=== PATIENT | female | born 1940 | race Caucasian/White ===

== ENCOUNTER 2022-02-10 17:56 | Outpatient (CLI) | payer MEDICARE, BC, SELFPAY ==
[2022-02-10 12:00] LABS: Albumin* 3.9 g/dL (3.3-5.0)
[2022-02-10 12:01] LABS: Chloride* 105 mmol/L (96-114); Sodium* 139 mmol/L (135-149)
[2022-02-10 12:03] LABS: Cholesterol* 196 mg/dL (90-199); Creatinine* 1.2 mg/dL (0.5-1.5); Estimated Glomerular Filt Rate 45.19
[2022-02-10 12:04] LABS: Alanine Aminotransferase* 12 U/L (4-35); Alkaline Phosphatase* 107 U/L (40-150); Aspartate Amino Transferase* 23 U/L (12-35); Bilirubin Total* 0.5 mg/dL (0.1-1.5); Blood Urea Nitrogen* 27 mg/dL (7-30); Calcium* 9.2 mg/dL (8.4-10.6); Carbon Dioxide* 30 mmol/L (20-32); Glucose* 97 mg/dL (60-115); Triglycerides* 180 mg/dL (40-149)
[2022-02-10 12:05] LABS: HDL Cholesterol* 57 mg/dL (>=50); LDL Cholesterol Calculated 103 mg/dL (<100)
[2022-02-10 13:08] LABS: Vitamin D 25 Hydroxy* 59 ng/mL (30-80)
== END 2022-02-10 17:57 | disposition home or self-care (01) ==
PROVIDERS: PCP Family Medicine; Visit Provider Family Medicine
DX: E78.5 Hyperlipidemia, unspecified (principal); M85.80 Other specified disorders of bone density and structure, unspecified site
CPT/HCPCS: 80053; 80061; 82306

== ENCOUNTER 2022-03-02 07:55 | Outpatient (CLI) | payer MEDICARE, BC, SELFPAY ==
[2022-03-02 11:24] LABS: Ferritin* 43.4 ng/mL (11.1-264.0)
[2022-03-02 11:40] LABS: Vitamin B12* 556 pg/mL (243-894)
== END 2022-03-02 07:56 | disposition home or self-care (01) ==
PROVIDERS: PCP Family Medicine; Visit Provider Family Medicine
DX: Z00.00 Encounter for general adult medical examination without abnormal findings (principal); R53.83 Other fatigue; E55.9 Vitamin D deficiency, unspecified; E78.5 Hyperlipidemia, unspecified; F41.9 Anxiety disorder, unspecified; M85.80 Other specified disorders of bone density and structure, unspecified site; F32.A Depression, unspecified; K21.9 Gastro-esophageal reflux disease without esophagitis; N18.30 Chronic kidney disease, stage 3 unspecified; Z13.0 Encounter for screening for diseases of the blood and blood-forming organs and certain disorders involving the immune mechanism
CPT/HCPCS: 82607; 82728; 84443

== ENCOUNTER 2022-03-16 13:55 | Outpatient (CLI) | payer MEDICARE, BC, SELFPAY ==
--- NOTE | 2022-03-16 14:00 | CRLHL7_ITS ---
For Patients: As a result of the Century Cures Act, medical imaging exams and procedure reports are released immediately into your electronic medical record. You may view this report before your referring provider. If you have questions, please contact your health care provider. DXA BONE MINERAL DENSITY STUDY Current height (in): 66. Weight (lb): 160. Menopause age: 41. Ethnicity: White. 1. Have you had a previous hip or vertebral fracture? No. 2. Have you had any fractures during your adult life which did not result from significant trauma (e.g., auto accident)? No. 3. Did either of your parents have a hip fracture? Yes. 4. Do you smoke? No. 5. Have you ever taken Glucocorticoids? No. 6. Do you have rheumatoid arthritis? No. 7. Do you have secondary osteoporosis? No. 8. Do you drink 3 or more alcoholic drinks per day? No. 9. Are you being treated for osteoporosis? No. 10. Have you ever taken any of the following medications: Actonel, Evista, Fosamax, Miacalcin, Reclast, Boniva, Forteo, HRT (i.e. estrogen/hormone therapy), Protelos, Prolia, Vitamin D, Calcium, other ??? please specify. ANSWER: Yes, vitamin D, calcium. 11. Do you have any of the following medical conditions: Anorexia or bulimia, asthma or emphysema, end stage renal disease, hyperparathyroidism, any seizure disorders, cancer, inflammatory bowel diseases, hysterectomy, other ??? please specify. ANSWER: No. 12. What was your maximum height (inches)? 56.5. 13. Do you perform weight bearing exercise regularly? Yes. 14. Do you regularly consume dairy products? Yes. 15. Do you drink caffeinated beverages? Yes. 16. At what age did your period start? 15. 17. Are you premenopausal? No. 18. How many full term pregnancies have you had? 2. 19. Have you ever missed your period for more than 6 months in a row (not including or menopause)? No. TECHNIQUE: Bone mineral density study was performed using the Fosubo. FINDINGS: The results of the study expressed as bone mineral density (BMD) are as follows: Lumbar spine L1, L3, L4: BMD: 0.795 g/cm2. T-score: -2.3. Z-score: 0.5. Neck Left: BMD: 0.618 g/cm2. T-score: -2.1. Z-score: 0.3. Right: BMD: 0.644 g/cm2. T-score: -1.8. Z-score: 0.6. Total Left: BMD: 0.724 g/cm2. T-score: -1.8. Z-score: 0.4. Right: BMD: 0.784 g/cm2. T-score: -1.3. Z-score: 0.9. Radius Left one-third: BMD: 0.419 g/cm2. T-score: -4.6. Z-score: -1.1. IMPRESSION: Osteoporosis. *Comparison exams done prior to 01/2020 were performed on different unit, [employer]. COMPARISON: Compared with scan of 02/19/2020, the bone mineral density has decreased by 0.8 percent at the spine and increased by 4.0 percent at the hip and increased by 1.5 percent at the left radius. FRAX 10-year Fracture Risk Major Osteoporotic Fracture: 30 percent Hip Fracture: 20 percent Reported Risk Factors: [place] () Neck BMD = 0.618, BMI = 25.8, parental fracture Fabien Arenas M.D. Diagnostic Radiologist [email or web address] JIMY/Dictated by: Fabien Arenas MD @ 03/16/2022 3:30:00 PM (Electronically Signed)
== END 2022-03-16 13:56 | disposition home or self-care (01) ==
PROVIDERS: PCP Family Medicine; Visit Provider Family Medicine
DX: M85.80 Other specified disorders of bone density and structure, unspecified site (principal); M81.0 Age-related osteoporosis without current pathological fracture; Z78.0 Asymptomatic menopausal state
CPT/HCPCS: 77080

== ENCOUNTER 2022-04-05 13:08 | Outpatient (CLI) | payer MEDICARE, BC, SELFPAY ==
--- NOTE | 2022-04-05 13:20 | CRLHL7_ITS ---
For Patients: As a result of the Century Cures Act, medical imaging exams and procedure reports are released immediately into your electronic medical record. You may view this report before your referring provider. If you have questions, please contact your health care provider. BILATERAL SCREENING MAMMOGRAM WITH COMPUTER-AIDED DETECTION AND TOMOSYNTHESIS TECHNIQUE: CC and MLO views were obtained. These mammographic images have been obtained using full-field digital technique. These mammographic images were interpreted with the benefit of computer-aided detection. Breast Tomosynthesis was used in this interpretation. COMPARISON FILM: 02/28/21, 01/20/20, 12/02/18. FINDINGS: The breasts are almost entirely fatty IMPRESSION: There is no radiographic evidence for malignancy. ASSESSMENT: BI-RADS Category 1: Negative RECOMMENDATION: Routine screening mammogram in 1 year. A lay language report of this examination will be provided to the patient. Robbin Gorman M.D. Diagnostic/Musculoskeletal Radiologist [email or web address] JIMY/Dictated by: Robbin Gorman MD @ 04/07/2022 7:43:00 AM (Electronically Signed)
== END 2022-04-05 13:09 | disposition home or self-care (01) ==
LOC: MAMMO 13:09
PROVIDERS: PCP Family Medicine; Visit Provider Family Medicine
DX: Z12.31 Encounter for screening mammogram for malignant neoplasm of breast (principal)
CPT/HCPCS: 77063; 77067

== ENCOUNTER 2022-08-02 08:15 | Outpatient (RCR) | payer MEDICARE, BC, SELFPAY ==
--- NOTE | 2022-06-26 13:55 | PT.OPEX ---
PT [place] Outpatient Eval PT [facility] Outpatient Eval Start: 06/26/22 07:09 Freq: Status: Active Protocol: Document 06/26/22 12:17 HERMINIA (Rec: 06/26/22 13:52 HERMINIA [id number]) E-signed By Rose Marie Ellis PT Physical Therapy Outpatient Evaluation Insurance Information Recert Due Date 09/18/22 Insurance Name Medicare B Medical Diagnosis Balance and Gait Deficit Treating Diagnosis Impaired balance Functional Strength Deficit Fall Risk Referring MD Dr Yazmin Pak Subjective Subjective Myriam reports feeling very concerned with reduced balance skills. She denies any accident or incident which may be related to it. I see a chiropractor monthly, and my daughters husbands sister is a PT - she comes to my house once a week for strengthening (primarily sitting ex). Before she came I had trouble even getting out of a chair, so I have come a long way. I am pain free so that is a blessing. I live alone, but my daughter and her live in [place]. I live in a 2 level town house, I can A/D stairs as long as I can hold the railing, can go reciprocal , but slowly. I have not fallen recently - my last fall was when I fractured my wrist 3 years ago at [place]. I have a hard time picking items up from the floor. I go to the [facility] and do Water Aerobics 3X/Wk and on my PT comes. I do all of my own cooking, shopping, laundry and cleaning. All my needed rooms are on the mainfloor - but I have a cruz is in the storage room, must use the stairs. Pain Comments pain free Date of Last Physician Visit 06/20/22 Current Work Status Retired Occupation I have lived here for 20 years . I used to work the [employer] at [employer], but now just take care of me Preferred Name Sofie Precautions Treatment Precautions/Contraindications Anxiety, CHI, DVT, Stage 3 Kidney Ds Weight Bearing Status Full Weight Bearing Therapy Limitations/Systems Review Vision,Hearing Objective Range of Motion Grossly WFL without pain or noted deficit Strength grossly WFL, but she fatiques fairly quickly Balance & Gait She ambulates with narrow base , long/symmetric stride and slightly reduced heel to toe gait. No AD Forward reach test = 12 inches 30 Second sit to stand test = 7 reps Tandom stance test = 10+ sec reinaldo LE in back position SLS 5+ sec reinaldo as an average. Posture Slight forward head and flattened spine Functional Test Performed & Score NEWMAN 52/56 Assessment Assessment/Impression 82 yo with DX of Balance Deficit. She arrived to dept via IND ambulation without any AD. She has good ambulation pattern - slightly reduced heel to toe and she reports only being able to stand/walk for about 30 min before she is tired and must look for a place to rest. She can sit to stand without use of UE on chair (30 sec sit to stand = 7 reps) Deep Dbl leg squat to approx 70 deg, then increased WB to Rt leg. SLS average 5 sec, tandom average 10 seconds . She is able to stand NBOS with EC for 30 seconds. Poor ankle and hip strategies, poor standing on foam NBOS with EC . She scored 52/56 on NEWMAN scale. She would benefit from continued skilled physical therapy to educate in HEP for advanced balance skills and gait training. Thank you for this referral. Plan of Care Rehabilitation Potential Good Physical Therapy Goals In 8-10 visits, Sofie will be able to: 1. Complete sit to stand 30 sec test increased form 7 reps to at least 10 reps to demonstrate increased LE strength and balance 2. Improved SLS from 5 sec to at least 10 sec to demonstrate reduced fall risk 3. Improved tandom stance from 10 sec average to 30 sec average to demonstrate improved balance 4. Increased NEWMAN from 52 to 56/56 5. Report self score of reduced fear of falling by at least 50% with IND execution of entire HEP to cont for fall prevention once DC from PT Coordination/Communication With Referral Source Treatment Plan/Direct Interventions Gait Training,Neuromuscular Re -ed,Self-Care/Home Management, Therapeutic Activities, Therapeutic Exercises Patient Will Be Discharged From Therapy Completion of LTG(s),Skills Plateau,Independent w/HEP, Independently Progressing Evaluation Billing Untimed Code Treatment Minutes 31 Complexity Moderate Certification Information Initial Certification Date 06/26/22 Ending Certification Date 09/18/22 Provider Signature Shows Agreement With POC & Medical Necessity Physician Signature & Date Requested Please Sign/Date Here Physician Comment/Change : Physician NPI Number #
== END 2022-09-19 11:03 | disposition home or self-care (01) ==
PROVIDERS: PCP Family Medicine; Visit Provider Family Medicine
DX: R26.89 Other abnormalities of gait and mobility (principal); Z51.89 Encounter for other specified aftercare
CPT/HCPCS: 97110; 97162

== ENCOUNTER 2022-10-12 15:26 | Outpatient (CLI) | payer MEDICARE, BC, SELFPAY | END 2022-10-12 15:27 | disposition home or self-care (01) | LOC: NFLDREF 15:29 | PROVIDERS: PCP Family Medicine; Visit Provider Family Medicine | DX: R42 Dizziness and giddiness (principal); E78.5 Hyperlipidemia, unspecified; R53.83 Other fatigue; N18.30 Chronic kidney disease, stage 3 unspecified; E55.9 Vitamin D deficiency, unspecified | CPT/HCPCS: 80053 ==

== ENCOUNTER 2022-10-25 10:52 | Outpatient (CLI) | payer MEDICARE, BC, SELFPAY ==
[2022-10-25 11:00] VITALS: BP 145/84; PULSE 67; RESP 16; O2SAT 98
[2022-10-25] MEDS: TETRACAINE 0.5% OPHTH 1 DROP EYE-BOTH ×2 (11:07→11:12)
[2022-10-25] MEDS: BRIMONIDINE TARTRATE 0.2% OPHTH 1 DROP EYE-BOTH ×2 (11:08→11:47)
--- NOTE | 2022-10-25 11:58 | P.OPTPRC_ITS ---
Procedure Note Date of procedure: 10/25/22 Will [facility] bill your pro fee for this procedure?: Yes Procedure Description: SURGEON: Claudia Martin MD PREOPERATIVE DIAGNOSIS: Posterior capsular opacity, right and left eye POSTOPERATIVE DIAGNOSIS: Posterior capsular opacity, right and left eye PROCEDURE: YAG laser capsulotomy, both eyes ANESTHESIA: Topical. ESTIMATED BLOOD LOSS: None PATHOLOGY SPECIMEN: None COMPLICATIONS: None INDICATIONS: See consult note for details. The risks, benefits and alternatives of the procedure were explained to the patient, who elected to proceed and signed informed consent to do so. PROCEDURE: The patient was brought to the pre-holding area where the right and left eyes were identified as the operative eyes. I placed my initials above the eyes. The following was given in both eyes: The patient received 2 sets of 1 drop of 0.5% tetracaine and 1 drop of 1% tropicamide. They also received 1 drop of 0.2% brimonidine. They received 1 drop of 0.5% tetracaine immediately prior to bringing them back for the procedure. The patient was then brought to the procedure room where the right and left eyes were again identified as the operative eyes. A YAG Jan capsulotomy lens was placed on the right eye. The laser was administered using a total number of 6 shots with an energy of 2.4 mJ per shot for a total energy of 14 mJ. The patient tolerated the procedure well. A YAG Jan capsulotomy lens was placed on the left eye. The laser was administered using a total number of 15 shots with an energy of 2.4 mJ per shot for a total energy of 36 mJ. The patient tolerated the procedure well. DISPOSITION: The patient was taken back to the pre-holding area and given 1 drop of 0.2% brimonidine in both eyes. They were discharged to home in stable condition. The patient was [facility] call [facility] any [facility] change, including dramatic loss of vision, severe pain in the eye or eyebrow region, nausea, or vomiting. The patient was instructed to use the 0.2% brimonidine 1 drop 2 times a day in both eyes for 1 week. The patient will follow up in the clinic in 1-2 weeks. Surgeon: Claudia Martin MD
== END 2022-10-25 11:48 | disposition home or self-care (01) ==
LOC: EYE PRC 10:55
PROVIDERS: PCP Family Medicine; Visit Provider Ophthalmology
DX: H26.9 Unspecified cataract (principal)
CPT/HCPCS: 66821; A9270

== ENCOUNTER 2023-02-09 13:37 | Outpatient (CLI) | payer MEDICARE, BC, SELFPAY ==
--- NOTE | 2023-02-09 14:00 | CRLHL7_ITS ---
For Patients: As a result of the Century Cures Act, medical imaging exams and procedure reports are released immediately into your electronic medical record. You may view this report before your referring provider. If you have questions, please contact your health care provider. INDICATION: RIGHT LEG PAIN, HX DVT COMPARISON: None. TECHNIQUE: A compression venous ultrasound exam was performed of the right lower extremity using thapa-scale imaging, color Doppler and spectral Doppler analysis. FINDINGS: Sonographic imaging of the right lower extremity demonstrates normal compressibility and color Doppler venous blood flow within the common femoral vein, deep femoral vein, and the proximal greater saphenous vein. Within the thigh, the femoral vein is patent and compressible. At a lower level, the popliteal and posterior tibial veins also show normal compressibility and color Doppler venous blood flow. Limited imaging of the contralateral groin demonstrates a normal spectral waveform and color Doppler venous blood flow within the left common femoral vein. Hypoechoic collections of fluid are not located within the posterior medial right knee measuring 3.3 x 0.7 x 1.9 cm and 5.4 x 0.7 x 2.4 cm possibly representing complicated popliteal cysts. IMPRESSION: No evidence of deep vein thrombosis within the right lower extremity. Dictated by Fabien Arenas MD @ 02/09/2023 2:29:25 PM (Electronically Signed)
== END 2023-02-09 13:38 | disposition home or self-care (01) ==
LOC: US 13:38
PROVIDERS: PCP Family Medicine; Visit Provider Family Medicine
DX: M79.604 Pain in right leg (principal); M79.89 Other specified soft tissue disorders; Z86.718 Personal history of other venous thrombosis and embolism
CPT/HCPCS: 93971

== ENCOUNTER 2023-03-02 23:27 | Outpatient (CLI) | payer MEDICARE, BC, SELFPAY | END 2023-03-02 23:28 | disposition home or self-care (01) | LOC: AMB 03-06 16:06 | PROVIDERS: PCP Family Medicine; Visit Provider Internal Medicine | DX: M54.9 Dorsalgia, unspecified (principal) | CPT/HCPCS: A0425; A0429 ==

== ENCOUNTER 2023-03-03 00:08 | Emergency (ER) | payer MEDICARE, BC, SELFPAY ==
--- NOTE | 2023-03-03 00:12 | CRLHL7_ITS ---
For Patients: As a result of the Century Cures Act, medical imaging exams and procedure reports are released immediately into your electronic medical record. You may view this report before your referring provider. If you have questions, please contact your health care provider. INDICATION: Back pain radiating to the leg TECHNIQUE: Lumbar spine radiograph 3 views COMPARISON: 05/30/2017 FINDINGS: Bone: Mild chronic appearing compression deformity seen the superior endplate L1. Alignment is normal. Disc: Degenerative disc disease with endplate osteophytes are present at L1-L4. Moderate bilateral facet osteoarthritis is present at L4-5 and L5-S1. Soft tissue: Unremarkable. No radiopaque foreign bodies are seen. IMPRESSION: 1. No acute osseous injuries or abnormalities are noted. Dictated by Anish Oquendo MD @ 03/03/2023 12:55:51 AM Dictated by: Anish Oquendo MD @ 03/03/2023 00:55:54 (Electronically Signed)
[2023-03-03 00:16] VITALS: BP 182/92; PULSE 84; RESP 16; TEMP 36.6; O2SAT 97; BMI 22.6
--- NOTE | 2023-03-03 00:37 | ED_ITS ---
HPI - Back Pain/Injury General Chief Complaint: Back Injury/Pain Stated Complaint: Back Pain Time Seen by Provider: 03/03/23 00:12 History of Present Illness HPI Narrative: Patient is a 82-year-old woman who comes in today with right-sided low back pain. She states she was getting ready for bed and developed acute low back pain with radiation into the right buttocks. This made her very uncomfortable and she became very concerned. She called for an ambulance and was brought to the emergency room. She really has no dysuria no nausea no vomiting no fevers no chills no weakness pain is localized as above. She has had no recent injuries. Related Data Home Medications Medication Instructions Recorded Confirmed calcium carbonate 500 mg calcium 500 mg PO BID 03/02/22 02/23/23 (1,250 mg) tablet oxyquinoline 0.025 %-sodium lauryl 0.5 ea vaginal .Weekly 03/02/22 02/23/23 sulfate 0.01 % vaginal gel Previous Rx's Medication Instructions Recorded cholecalciferol (vitamin D3) 50 50 mcg PO DAILY #90 tabs 03/02/22 mcg (2,000 unit) tablet citalopram 20 mg tablet 20 mg PO DAILY #90 tabs 03/02/22 famotidine 20 mg tablet 20 mg PO BID #180 tabs 03/02/22 pravastatin 20 mg tablet 20 mg PO .Bedtime #90 tabs 03/02/22 alendronate 70 mg tablet (Fosamax) 70 mg PO QWEEK #14 tabs 03/21/22 estradiol 0.01% (0.1 mg/gram) 0.5 g vaginal 2XW #42.5 grams 08/17/22 vaginal cream (Estrace) Allergies Allergy/AdvReac Type Severity Reaction Status Date / Time hyaluronic acid Allergy Unknown pain all Verified 02/23/23 14:01 over body HMG-CoA reductase inhibitor Allergy Severe unable to Uncoded 02/23/23 14:01 walk [facility] Medical History Hx of dizziness ?Z87.898 - Personal history of other specified conditions (ICD-10) Osteoarthritis of knee (09/07/11) ?M17.10 - Unilateral primary osteoarthritis, unspecified knee (ICD-10) History of colonic polyps ?Z86.010 - Personal history of colonic polyps (ICD-10) Osteoarthritis of left patellofemoral joint ?M17.12 - Unilateral primary osteoarthritis, left knee (ICD-10) Vitamin D deficiency ?E55.9 - Vitamin D deficiency, unspecified (ICD-10) Vaginal pessary in situ ?Z96.0 - Presence of urogenital implants (ICD-10) Statin intolerance ?Z78.9 - Other specified health status (ICD-10) Stage 3 chronic kidney disease (2019) ?N18.30 - Chronic kidney disease, stage 3 unspecified (ICD-10) Osteopenia determined by x-ray ?M85.80 - Other specified disorders of bone density and structure, unspecified site (ICD-10) Gastroesophageal reflux ?K21.9 - Gastro-esophageal reflux disease without esophagitis (ICD-10) Fracture of left wrist ?S62.102A - Fracture of unspecified carpal bone, left wrist, initial encounter for closed fracture (ICD-10) Deep vein thrombosis (DVT) of lower extremity (2006) ?I82.409 - Acute embolism and thrombosis of unspecified deep veins of unspecified lower extremity (ICD-10) Counseling regarding advanced directives ?Z71.89 - Other specified counseling (ICD-10) Closed head injury ?S09.90XA - Unspecified injury of head, initial encounter (ICD-10) Balance problems ?R26.89 - Other abnormalities of gait and mobility (ICD-10) Anxiety (~1996) ?F41.9 - Anxiety disorder, unspecified (ICD-10) Surgical History History of dilation and curettage (2012) ?Z98.890 - Other specified postprocedural states (ICD-10) History of cataract extraction (2015) ?Z98.49 - Cataract extraction status, unspecified eye (ICD-10) Family History Sister Breast cancer, Onset Age: 75 Daughter Thyroid disease Son Diabetes Social History Narrative: , retired teacher exercises regularly- 3/week, water aerobics. She regularly does water aerobics at the [employer]. nonsmoker- quit 20 yrs ago, hx 30 pack years rarely consumes alcohol She has lived in [place] since 2002. She lives alone but has grandkids in town. 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 Her was also a teacher. He about 25 years ago. Her daughter and lives here with her 2 grandkids, ages 16 and 11. The older is a senior, and the younger in 7th grade. Smoking Status: Former smoker What tobacco products do you use: cigarettes Smoking quit date/years: >15 years ago Do you use any of these nicotine containing products: None Second hand tobacco smoke exposure: No Little interest or pleasure in doing things: not at all Feeling down, depressed, or hopeless: not at all Exam Narrative: Exam Narrative: EXAM GENERAL: Patient appears comfortable and well. EYES: No scleral icterus. ENT: Tympanic membranes and oropharynx normal. THYROID: no thyroid nodules or thyromegaly. LYMPH: No supraclavicular or cervical lymphadenopathy. SKIN: Visible skin seen during exam normal or with benign process only. EXT: No dependent lower extremity pedal edema. HEART: Regular rate and rhythm with no murmurs, rubs, or gallops. LUNGS: Clear to auscultation bilaterally with no crackles or wheezes. ABD: Soft, non tender, non distended. PSYCH: Good eye contact, speech is not pressured. Neuromuscular exam is completely normal tonight. Const: Vital Signs, click to edit/add: Vital Signs - 24 hr 03/03/23 00:16 Temperature 97.9 F Pulse Rate [Left P ulse Oximeter] 84 Respiratory Rate 16 Blood Pressure [Ri ght Upper Arm] 182/92 H Pulse Oximetry 97 Oxygen Delivery Me thod Room Air Course Course Hospital Course: Patient seen examined. X-ray of the lumbar spine upon my review shows osteoarthritis with scoliosis appears to be chronic compression fractures. 30 mg of Toradol given IM Vital Signs Vital signs: Initial Vital Signs Temperature 97.9 F 03/03/23 00:16 Temperature Source Temporal Artery Scan 03/03/23 00:16 Pulse Rate 84 03/03/23 00:16 Respiratory Rate 16 03/03/23 00:16 Blood Pressure 182/92 H 03/03/23 00:16 Blood Pressure Mean 122 H 03/03/23 00:16 Blood Pressure Position Supine 03/03/23 00:16 Pulse Oximetry 97 03/03/23 00:16 Oxygen Delivery Method Room Air 03/03/23 00:16 Vital Signs Temperature 97.9 F 03/03/23 00:16 Pulse Rate 84 03/03/23 00:16 Respiratory Rate 16 03/03/23 00:16 Blood Pressure 182/92 H 03/03/23 00:16 Pulse Oximetry 97 03/03/23 00:16 Oxygen Delivery Method Room Air 03/03/23 00:16 Temperature 97.9 F 03/03/23 00:16 Pulse Rate 84 03/03/23 00:16 Respiratory Rate 16 03/03/23 00:16 Blood Pressure 182/92 H 03/03/23 00:16 Pulse Oximetry 97 03/03/23 00:16 Oxygen Delivery Method Room Air 03/03/23 00:16 MDM - Back Pain/Injury MDM Narrative Medical decision making narrative: Patient is a 82-year-old woman who presents with acute on chronic low back pain with no injuries. X-ray shows scoliosis with chronic looking compression fr actures. She has no bowel or bladder symptoms no fevers no chills and otherwise feels well. Seven to give her Toradol 15 mg IM discharge her to the care of her family with primary care follow-up. Differential Diagnosis Differential diagnosis: Likely lumbar radiculopathy, strain of lumbar region, thoracic back pain and discitis Discharge Plan Discharge Clinical Impression: Back pain Condition: Stable Instructions: Back Pain (ED) Additional Instructions: Ice Tylenol Motrin Rest Activity Level: No Restrictions Discharge Diet: Regular Prescriptions: No Action calcium carbonate 500 mg calcium (1,250 mg) tablet 500 mg PO BID oxyquinoline-sod.lauryl sulfat 0.025-0.01 % gel 0.5 ea vaginal .Weekly cholecalciferol (vitamin D3) 50 mcg (2,000 unit) tablet 50 mcg PO DAILY Qty: 90 4RF citalopram 20 mg tablet 20 mg PO DAILY Qty: 90 4RF famotidine 20 mg tablet 20 mg PO BID Qty: 180 4RF pravastatin 20 mg tablet 20 mg PO .Bedtime Qty: 90 4RF alendronate [Fosamax] 70 mg tablet 70 mg PO QWEEK Qty: 14 4RF estradiol [Estrace] 0.01 % (0.1 mg/gram) cream 0.5 g vaginal 2XW Qty: 42.5 3RF Rx Instructions: Use nightly for 2 weeks, then twice weekly. May apply with finger. Follow Up/Referrals: Yazmin Pak MD [Primary Care Provider] - Stand Alone Forms: [employer] Info Instructions
[2023-03-03] MEDS: KETOROLAC 30 MG/ML inj IM (01:32)
[2023-03-03 01:40] VITALS: BP 165/90; PULSE 85; RESP 16; TEMP 36.8; O2SAT 96
[2023-03-03 02:07] VITALS: BP 165/90; PULSE 85; RESP 16; TEMP 36.8
== END 2023-03-03 01:50 | disposition home or self-care (01) ==
LOC: ED 00:59
PROVIDERS: Emergency Provider Internal Medicine; PCP Family Medicine
DX: M54.50 Low back pain, unspecified (principal)
CPT/HCPCS: 72100; 96372; 99283; J1885

== ENCOUNTER 2023-04-30 13:05 | Outpatient (CLI) | payer MEDICARE, BC, SELFPAY ==
--- NOTE | 2023-04-30 13:20 | CRLHL7_ITS ---
For Patients: As a result of the Century Cures Act, medical imaging exams and procedure reports are released immediately into your electronic medical record. You may view this report before your referring provider. If you have questions, please contact your health care provider. BILATERAL SCREENING MAMMOGRAM WITH COMPUTER-AIDED DETECTION AND TOMOSYNTHESIS TECHNIQUE: CC and MLO views were obtained. These mammographic images have been obtained using full-field digital technique. These mammographic images were interpreted with the benefit of computer-aided detection. Breast Tomosynthesis was used in this interpretation. COMPARISON FILM: 04/05/22, 02/18/21, 01/20/20. FINDINGS: The breasts are almost entirely fatty IMPRESSION: There is no radiographic evidence for malignancy. ASSESSMENT: BI-RADS Category 1: Negative RECOMMENDATION: Routine screening mammogram in 1 year. A lay language report of this examination will be provided to the patient. Fabien Arenas M.D. Diagnostic Radiologist [email or web address] Transcribed: 2:48 pm DW/Dictated by: Fabien Arenas MD @ 05/01/2023 9:11:00 AM (Electronically Signed)
== END 2023-04-30 13:06 | disposition home or self-care (01) ==
LOC: MAMMO 13:06
PROVIDERS: PCP Family Medicine; Visit Provider Family Medicine
DX: Z12.31 Encounter for screening mammogram for malignant neoplasm of breast (principal)
CPT/HCPCS: 77063; 77067

== ENCOUNTER 2023-10-01 11:29 | Outpatient (CLI) | payer MEDICARE, BC, SELFPAY | END 2023-10-01 11:30 | disposition home or self-care (01) | PROVIDERS: PCP Family Medicine; Visit Provider Obstetrics & Gynecology | DX: R30.0 Dysuria (principal) | CPT/HCPCS: 87086; 87186 ==

== ENCOUNTER 2023-10-29 10:30 | Outpatient (RCR) | payer MEDICARE, BC, SELFPAY ==
--- NOTE | 2023-09-03 11:53 | PT.OPEX ---
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 SHE DESCRIBES FEELING DIZZY, UNSTEADY, AND LIGHTHEADED INTERMITTENTLY NOTING CHANGING DIRECTION QUICKLY THE TRIGGER. SHE IS AN ACTIVE WOMAN WHO REGULARLY ATTENDS WATER AEROBICS THREE TIMES/ WEEK AT 50N AND REGULARLY ENGAGING IN SABIANIST ACTIVITIES. SHE LIMITS HER SOCIALIZING AND INTERACTION WHEN UNCERTAIN THE TERRAIN SHE WILL NEED TO NAVIGATE AND REPORTS VISITING HER SISTER OUTSIDE [place] REGULARLY BUT VERY FEARFUL OF THE CURBS SHE MUST NAVIGATE. SHE REPORTS A FALL ROUGHLY 5MONTHS AGO WHERE SHE WAS MOVING A HEAVY MIXER FROM ONE COUNTER TO THE OTHER AND LOSING HER BALANCE LANDING ON THE FLOOR. SHE ROUTINELY VISITS HER CHIROPRACTOR WEEKLY FOR AN ADJUSTMENT AND FEELS HE HELPS HER STAY STRAIGHT. Pain Comments N/A Date of Last Physician Visit 08/20/23 Current Work Status Retired Occupation RETIRED [employer] INSTRUCTOR Preferred Name BETHANIE Objective Functional Test Performed & Score 30 SEC SIT TO STAND : 10 OBJECTIVELY EVALUATES FUNCTIONAL STRENGTH TU.5 SEC OBJECTIVELY ASSESSES MOBILITY, BALANCE, WALKING ABILITY AND FALL RISK. FES-I: 36/64 (56.2%) PATIENT SUBJECTIVELY EVALUATES THEIR FEAR OF FALLING OR, MORE PROPERLY CONCERNS OF FALLING LEFS: 37/80 (46.25%) PATIENT SUBJECTIVELY EVALUATES THE IMPAIRMENT OF THEIR LOWER EXTREMITY DISORDER NEWMAN/56 (55.3%) OBJECTIVELY EVALUATES STATIC BALANCE AND FALL RISK Assessment Assessment/Impression PATIENT IS AN [address] DELCID TO EVAL AND TREAT A BALANCE DISTURBANCE. PMHX INCLUDES BUT NOT LIMITED TO CKD3, H/O FALLS W/O INJURY, ANXIETY AND DEPRESSION, GERD, HLD, PROLAPSE BLADDER WITH PESSARY REPLACED EVERY 3MONTHS , CHRONIC DIZZINESS, AND VENOUS STASIS BLE. PATIENT LIVES ALONE WITH HER CAT IN A ONE STORY HOME WITH A FINISHED BASEMENT. SHE HAS FAMILY IN TOWN THAT ASSIST NEEDED BUT DRIVES INDEPENDENTLY AND CARES FOR HERSELF AND HER HOME INDEPENDENTLY. SHE HAS DECREASED THE INTERACTIONS OUT IN THE COMMUNITY ASIDE FROM HER SABIANIST FAMILY/ENGAGEMENT D /T THE INCREASING BALANCE CHALLENGES IN UNFAMILIAR AREAS AND INCLEMENT WEATHER. SHE CAN NOT SPECIFICALLY TELL ME WHY SHE FEELS UNSTEADY BUT CONTINUES TO COME BACK TO THE FEELING DIZZY AND UNSTEADY WHEN CHANGE DIRECTION OR HAVING TO STEP W/O RAILINGS. HER FINISHED BASEMENT IS WHERE HER CAT'S LITTER BOX IS LOCATED AND USES THE RAILING FOR BOTH ASCENDING AND DESCENDING WITH FAIR ABILITY. ADMINISTERED A BATTERY OF BALANCE EXAMS ASSESSING FUNCTIONAL STRENGTH, STATIC AND DYNAMIC FUNCTIONAL BALANCE , WELL MOBILITY WAKING AND OVERALL RISK FOR FALLS. ADMINISTERED TWO SEPARATE SUBJECTIVE TEST TO ASSESS HER FEAR/CONCERN OF FALLING AND HER PERCEPTION OF HER FUNCTIONAL LE ABILITY. COLLECTIVELY, SHE DEMONSTRATES SCORES THAT INDICATE AN IMMINENT FALL RISK. SHE HAS MOST OF HER CHALLENGE WHEN IN SLS, ON COMPLIANT SURFACES, AND CHANGE IN DIRECTION. SHE DOES NOT HAVE ANY GROSS WEAKNESS NOR LOSS OF SENSATION IT RELATES TO HER VENOUS STASIS. HER PATIENT CENTERED GOAL IS TO,I JUST WANT TO FEEL SAFE AND STEADY WHEN I'M OUT OF MY HOME SO THAT I CAN CONTINUE TO PARTICIPATE IN THE ACTIVITIES THAT I ENJOY. SHE IS APPROPRIATE FOR SKILLED PHYSICAL THERAPY TO ADDRESS BOTH HER SOMATOSENSORY AND VESTIBULAR SYSTEMS THESE TWO STAND OUT IN HER OVERALL DEFICITS. BEGAN TODAY PERFORMING SEVERAL BALANCE AND VESTIBULAR EXERCISES INSTRUCTING HER USE HER COUNTER FOR SAFETY. PATIENT VERBALIZED UNDERSTANDING TO ALL SKILLED INSTRUCTION AND IN AGREEMENT WITH POC AND FREQ. Primary Functional Limitations STAIRS COMMUNITY AMB UNEVEN SURFACES CHANGE IN DIRECTION Plan of Care Rehabilitation Potential Good Physical Therapy Goals 1. IMPROVE CORE/HIP/GLUT STRENGTH AND TRUNK STABILITY OVER THE NEXT 6-8 WEEKS FOR IMPROVED FUNCTIONAL MOBILITY, BALANCE, AND GAIT TO DECREASE RISK FOR FALLS. 2. IMPROVE NEWMAN SCORE FROM 37/ 56 TO 45/56 AND LEFS FROM 37/ 80 TO 55/80 OVER THE NEXT 6-8 WEEKS FOR IMPROVED SAFETY WITH DAILY ACTIVITIES AND DECREASED RISK OF FALLS. 3. IMPROVE BALANCE, COORDINATION OVER THE NEXT 6-8 WEEKS FOR IMPROVED GAIT AND SAFETY FOR COMMUNITY NAVIGATION WELL PEER CENTERED ACTIVITIES. 4. PATIENT WILL BE INDEPENDENT WITH HER HEP WITHIN 8-12 WEEKS FOR PROGRESSION TOWARD THE AFOREMENTIONED GOALS, CONTINUED SELF IMPROVEMENT WITH STRENGTH, COORDINATION, GAIT, AND SAFETY AWARENESS. Coordination/Communication With Referral Source Treatment Plan/Direct Interventions Gait Training,Neuromuscular Re -ed,Self-Care/Home Management, Therapeutic Activities, Therapeutic Exercises Patient Will Be Discharged From Therapy Completion of LTG(s), Independently Progressing Evaluation Billing Untimed Code Treatment Minutes 25 Complexity Moderate Certification Information Initial Certification Date 08/29/23 Ending Certification Date 11/26/23 Provider Signature Shows Agreement With POC & Medical Necessity Physician Signature & Date Requested Please Sign/Date Here Physician Comment/Change : Physician NPI Number #
== END 2023-11-22 09:38 | disposition home or self-care (01) ==
PROVIDERS: PCP Family Medicine; Visit Provider Family Medicine
DX: R26.89 Other abnormalities of gait and mobility (principal); Z51.89 Encounter for other specified aftercare
CPT/HCPCS: 97110; 97112; 97162

== ENCOUNTER 2024-01-07 11:42 | Outpatient (CLI) | payer MEDICARE, BC, SELFPAY ==
--- OUTSIDE RECORDS SUMMARY | 2024-01-07 11:46 | XMS_ITS | Clinical Summary ---
Author Organization [employer] [facility] Address [place], [place] [address] Care Team Providers Care Aerospace Assembler Name Role Phone Zo Jackson DO Primary Care Provider Allergies Active Allergy Reactions Criticality Noted Date Comments Hyaluronic Acid Other - Describe In Comment Field 09/13/2021 Yqyjarp-Arn-Nwv Reductase Inhibitors Myalgia 10/31/2022 Muscle ache Unlisted Allergen (Include Detail In Comments) Other - Describe In Comment Field High 09/13/2021 Medications Medication Sig Dispensed Refills Start Date End Date Status estradioL (VAGIFEM) 10 mcg tab vaginal tablet Twice Weekly 09/13/2021 Active Premarin 0.625 mg/gram vaginal cream Insert 1 g into the vagina. 08/11/2022 Active citalopram (CELEXA) 20 mg tabletIndications:Depr ession, major, in remission (HC) Take 1 Tablet (20 mg) by mouth once daily. 90 Tablet 3 04/16/2023 Active alendronate (FOSAMAX) 70 mg tabletIndications:Age- related osteoporosis without current pathological fracture Take 1 Tablet (70 mg) by mouth once a week in the morning. 12 Tablet 3 04/16/2023 Active ezetimibe (ZETIA) 10 mg tabletIndications:Hype rlipidemia, unspecified hyperlipidemia type,Myalgia due to statin Take 1 Tablet (10 mg) by mouth once daily. 90 Tablet 3 04/17/2023 Active famotidine (PEPCID) 20 mg tabletIndications:Fagot Heater Helper parminder GERD TAKE ONE TABLET BY MOUTH TWICE A DAY 180 Tablet 4 04/27/2023 Active cholecalciferol (VITAMIN D3) 2,000 unit capsuleIndications:Vit whelan D deficiency TAKE ONE CAPSULE BY MOUTH DAILY 90 Capsule 4 04/27/2023 Active Active Problems Problem Noted Date Diagnosed Date Autonomic dysfunction 09/07/2023 Depression, major, in remission 08/20/2023 Anxiety 06/20/2023 Chronic GERD 06/20/2023 Hyperlipidemia, unspecified 06/20/2023 Overview: Statin intolerance Vitamin D deficiency 06/20/2023 Urinary incontinence 06/20/2023 Vaginal pessary present 06/20/2023 Stage 3 chronic kidney disea se, unspecified whether stage 3a or 3b CKD 04/16/2023 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 Overview: Colonoscopy 11/2008 polyps repeat in 3 years Colonoscopy 05/2012 normal repeat in 5 years Encounters Date Type Department Care Team Description 12/05/2023 Nurse Triage [facility] [address] [place] [address] Zo Jackson Bharti, DO Cough from Last 3 Months Immunizations Name Administration Dates Next Due COVID-19 vaccine ([employer] 30mcg/0.3mL) PF, MDV 09/11/2020 Influenza A (H1N1), Inactivated 08/05/2009 Influenza, High-dose Inactivated 019,05/08/2017,06/04/2015,2013,08/19/2012,04/26/2010 Influenza, High-dose Quadriv alent Inactivated 05/16/2022,05/19/2021 Influenza, IIV3 (Age 6-35 mos) 04/29/2013,2011 Influenza, IIV4 05/20/2020 Pneumococcal Poly,23-Valent (Pneumovax) 10/19/2008 Pneumococcal conj 13-Valent (Prevnar 13) 09/27/2017 Td (Age >=7 Years) 10/27/1998 Tdap 01/10/2019,10/19/2008 Zoster (Shingrix-RZV, recombinant) 02/21/2022, Family History Medical History Relation Name Comments Unknown Father No Known Problems Mother Relation Name Status Comments Father Mother Social History Tobacco Use Types Packs/Day Years Used Date Smoking Tobacco: Former Smokeless Tobacco: Never Alcohol Use Standard Drinks/Week Comments Not Currently 0 (1 standard drink = 0.6 oz pur e alcohol) PHQ-2 Answer Date Recorded PHQ-2 TOTAL SCORE 1 08/20/2023 Social Connections Answer Date Recorded Frequency of Communication with Friends and Fami ly Not on file 04/16/2023 Sex and Gender Information Value Date Recorded Sex Assigned at Not on file Gender Identity Not on file Sexual Orientation Not on file Obstetrics History Last Filed Vital Signs Vital Sign Reading Time Taken Comments Blood Pressure 93/63 09/07/2023 2:14 PM MANAGER DOCUMENT Pulse 78 09/07/2023 2:12 PM MANAGER DOCUMENT Temperature - - Respiratory Rate - - Oxygen Saturation 95% 09/07/2023 2:12 PM MANAGER DOCUMENT Inhaled Oxygen Concentration - - Weight 65.2 kg (143 lb 11.2 oz) 09/07/2023 2:12 PM MANAGER DOCUMENT Height - - Body Mass Index - - Plan of Treatment Upcoming Encounters Date Type Department Care Team (Late st Contact Info) Description 02/18/2024 3:00 PM CDT Office Visit [facility] [address] [place] [address] Zo Jackson Bharti, DO [address] [place] [address] Health Maintenance Due Date Last Done Comments BMI (ht and wt on same day) for age 18+ 1957 DEXA/DXA scan for age 65+ 2004 Influenza for age 65+ 04/06/2024 05/16/2022 , 05/19/2021, 05/20/2020, Additional history exists Medicare Wellness for age 65+ 04/16/2024 04/16/2023 Depression screening for age 12+ 08/22/2024 08/22/2023, 08/20/2023, 04/17/2023, Additional history exists Tetanus booster 01/10/2029 01/10/2019, 10/04, 10/27/1998 Pneumococcal series for age 65+ Completed 8, 10/19/2008 Tdap Completed 01/10/2019, 10/19/2008 Zoster (shingles) series for age 50+ Completed 02/21/2022, 09/05/2021 COVID-19 vaccine series Completed 06/19/20 23, 05/16/2022, 05/19/2021, Additional history exists Care Teams Aerospace Assembler Relationship Specialty Start Date End Date [place] [address] PCP - General Family Practice 04/16/23
--- OUTSIDE RECORDS SUMMARY | 2024-01-07 11:46 | XMS_ITS ---
Author Organization [facility] Address [address] [place] [address] Care Team Providers Care Superintendent Ammunition Storage Name Role Phone Unavailable Unavailable Unavailable Surgery Details Not on file Complications Check Surgery Details section. Procedure Estimated Blood Loss Check Surgery Details section. Procedure Findings Check Surgery Details section. Procedure Specimens Taken Check Surgery Details section.
--- OUTSIDE RECORDS SUMMARY | 2024-01-07 11:46 | XMS_ITS | Referral Summary ---
Author Organization [facility] Address [address] [place] [id number] Care Team Providers Care Landscaper Name Role Phone Unavailable Primary Care Provider Unavailabl e Source Comments Patient records contain information from all sites at [facility]. For routine questions regarding patient records, call [phone] during business hours, M-F 8:00 AM - 5:00 PM Central Time. Record requests for emergency care only can be directed to [phone] at any time.[facility] Allergies Active Allergy Reactions Criticality Noted Date Comments Hyaluronic Acid Other (see comments) 09/13/2021 Kecftop-Ijl-Nlg Reductase Inhibitors Other (see comments) 10/31/2022 Muscle ache Medications Medication Sig Dispensed Refills Start Date End Date Status cholecalciferol (VITAMIN D3) 50 mcg (2,000 Unit) capsule Take 50 mcg by mouth daily. 10/25/2022 Active citalopram (CeleXA) 20 mg tablet Take 20 mg by mouth daily. 10/25/2022 Active estradioL (ESTRACE) 0.1 mg/g (0.01%) vaginal cream 2 (two) times a week. 08/17/2022 Active famotidine (PEPCID) 20 mg tablet Take 20 mg by mouth 2 (two) times a day. 10/25/2022 Active pravastatin (PRAVACHOL) 20 mg tablet Take 20 mg by mouth at bedtime. 10/25/2022 Active alendronate (FOSAMAX) 70 mg tablet Take 70 mg by mouth once a week. Take with 8oz of water, on an empty stomach. Remain upright for 30min. Active Premarin 0.625 mg/gram vaginal cream INSERT 1 GRAM VAGINALLY 2 TIMES PER WEEK 08/11/2022 Active ezetimibe (ZETIA) 10 mg tablet Take 10 mg by mouth. Acti ve SF 5000 Plus 1.1 % dental cream 1 Application See Admin Instructions. 04/23/2023 Active OXYQUINOLINE-SOD.BIGGS RYL SULFAT VAGINAL 0.5 each by other route. 03/02/2022 Active Active Problems Problem Noted Date Diagnosed Date Orthostatic Spell 12/06/2022 Repeated Falls 11/01/2022 Social History Tobacco Use Types Packs/Day Years Used Date Smoking Tobacco: Former Cigarettes Q uit: 1993 Smokeless Tobacco: Never Tobacco Cessation:Counseling Given: Not Answered Nutrition Answer Date Recorded Nutrition: EVOO Fat Source Unknown 10/17 Nutrition: Servings of Fruits/Vegetables per Day Not on file 10/17/2022 Dental Answer Date Recorded Dental: Regular Dentist Unknown 10/18/19 Sex and Gender Information Value Date Recorded Sex Assigned at Not on file Gender Identity Not on file Sexual Orientation Not on file Last Filed Vital Signs Vital Sign Reading Time Taken Comments Blood Pressure 151/80 05/10/2023 7:54 AM CDT Pulse 73 05/10/2023 7:54 AM CDT Temperature - - Respiratory Rate - - Oxygen Saturation - - Inhaled Oxygen Concentration - - Weight 67.1 kg (147 lb 14.9 oz) 05/10/2023 7:51 AM CDT Height 167.9 cm (5' 6.1) 05/10/2023 7:51 AM CDT Body Mass Index 23.8 05/10/2023 7:51 AM CDT [place] [id number]
--- OUTSIDE RECORDS SUMMARY | 2024-01-07 11:46 | XMS_ITS | Clinical Summary ---
Author Organization [facility] Address [address] [place] [address] Care Team Providers Care Medical Doctor Md Name Role Phone Unavailable Primary Care Provider Unavailabl e Source Comments Patient records contain information from all sites at [facility]. For routine questions regarding patient records, call [phone] during business hours, M-F 8:00 AM - 5:00 PM Central Time. Record requests for emergency care only can be directed to [phone] at any time.[facility] Allergies Active Allergy Reactions Criticality Noted Date Comments Hyaluronic Acid Other (see comments) 09/13/2021 Npsxfwu-Ndd-Ypd Reductase Inhibitors Other (see comments) 10/31/2022 Muscle [...] Date Recorded Dental: Regular Dentist Unknown 10/18/19 23 Sex and Gender Information Value Date Recorded [...] 05/10/2023 7:51 AM CDT Plan of Treatment Health Maintenance Due Date Last Done Comments Depression Screening (Annual PHQ-2) 08/06/2023 Fall Risk Screen (Annual) 08/06/2023 COVID-19 Vaccine (6 - 2022-2 4 season) 2023 06/19/2023, 05/16/2022, 05/19/2021, Additional history exists DTaP,Tdap,and Td Vaccines (3 - Td or Tdap) 01/10/2029 01/10/2019, 10/19/2008, 10/27/1998 Pneumococcal vaccine (65+ years) Completed 09/27/19 18, 10/19/2008 Zoster Vaccines Completed 02/21/2022, 09/05/2021 Influenza Vaccine Completed 06/19/2023, , 05/19/2021, Additional history exists [address] [place] [id number]
[2024-01-07 11:47] LABS: Appearance Urine Clear (Clear); Bilirubin Urine Negative (Negative); Blood Urine 1+ (Negative); Color Urine Yellow (Yellow); Glucose Urine Negative (Negative); Ketones Urine Trace (Negative); Leukocyte Esterase Urine Negative (Negative); Nitrite Urine Negative (Negative); Protein Urine Negative (Negative); Specific Gravity Urine >= 1.030 (1.000-1.030); Urobilinogen Urine 0.2 (0.2-1.0); pH Urine 5.5 (5.0-8.5)
[2024-01-07 11:57] LABS: Bacteria Urine Moderate; Calcium Oxalate Crystals Urine Many; Mucus Urine Few; RBC Urine 0-2 (0-2); Squamous Epithelial Cell Urine Few (None-Few); WBC Urine 0-2 (0-5)
== END 2024-01-07 11:43 | disposition home or self-care (01) ==
PROVIDERS: PCP Family Medicine; Visit Provider Obstetrics & Gynecology
DX: N39.0 Urinary tract infection, site not specified (principal)
CPT/HCPCS: 81001; 87086

== ENCOUNTER 2024-08-25 14:12 | Emergency (ER) | payer MEDICARE, BC, SELFPAY ==
[2024-08-25 14:38] VITALS: BP 97/54; PULSE 84; RESP 16; TEMP 36.1; O2SAT 96; BMI 24.5
[2024-08-25 14:56] LABS: Lactate Sepsis w/Reflex* 1.4 mmol/L (0.5-1.9)
[2024-08-25 14:57] LABS: Basophils Percent Auto 0.2 % (0.0-3.0); Eosinophils Percent Auto 0.2 % (0.0-7.0); Hematocrit 41.2 % (33.0-51.0); Hemoglobin* 13.3 gm/dL (12.0-16.0); Immature Granulocytes Pct Auto 0.2 %; Lymphocytes Percent Auto 14.4 % (20-44); Mean Corpuscular HGB Conc 32 gm/dL (32-36); Mean Corpuscular Hemoglobin 29 pg (26-34); Mean Corpuscular Volume 88 fL (80-100); Monocytes Percent Auto 6.3 % (0.0-11.0); Neutrophils Percent Auto 78.7 % (42.0-72.0); Platelet Count* 339 K/uL (140-440); RDW Coefficient of Variation % 14.3 % (11.5-15.5); Red Blood Count 4.66 m/uL (4.00-5.20)
[2024-08-25 14:59] LABS: Slide Review Reflex No
--- NOTE | 2024-08-25 15:00 | ED_ITS ---
HPI - General Adult General Date Seen: 08/25/24 Chief complaint: Animal Bite Stated complaint: Fall, cat bite Time Seen by Provider: 08/25/24 14:25 History of Present Illness HPI narrative: Patient is an 84-year-old woman here with her son and [id number]. There are a couple of things going on, which they wanted to make sure work related. On Sunday, she accidentally stepped on her cat who then bit her on the left calf. Today, they were in the process of packing, she is moving to an independent intermediate facility tomorrow, and she started to feel hot and kind of lightheaded. She did have a fall because she lost her balance, did not lose consciousness. Denies hitting her head, no head or neck pain, denies any other injuries. They became concerned that maybe the cat bite was infected and that was what was making her feel weak today. She denies fever, does not has significant pain in the calf and has not noted any redness or fever. She does feel fatigued and just generally kind of weak. No respiratory symptoms, vomiting, diarrhea or other complaints. Related Data Home Medications ?Medication ?Instructions ?Recorded ?Confirmed calcium carbonate 500 mg PO BID 03/02/22 08/25/24 oxyquinoline 0.025 %-sodium lauryl 0.5 ea vaginal .Weekly 03/02/22 08/08/24 sulfate 0.01 % vaginal gel Previous Rx's ?Medication ?Instructions ?Recorded cholecalciferol (vitamin D3) 50 50 mcg PO DAILY #90 tabs 03/02/22 mcg (2,000 unit) tablet citalopram 20 mg tablet 20 mg PO DAILY #90 tabs 03/02/22 famotidine 20 mg tablet 20 mg PO BID #180 tabs 03/02/22 pravastatin 20 mg tablet 20 mg PO .Bedtime #90 tabs 03/02/22 estradiol 0.01% (0.1 mg/gram) 0.5 g vaginal 2XW #42.5 grams 05/13/24 vaginal cream Allergies Allergy/AdvReac Type Severity Reaction Status Date / Time hyaluronic acid Allergy Unknown pain all Verified 08/25/24 14:44 over body HMG-CoA reductase inhibitor Allergy Severe unable to Uncoded 08/08/24 09:37 walk Review of Systems Status of ROS: Reports: 10 or more systems reviewed and unremarkable except as noted in History and below PFSH PFSH Medical History Hx of dizziness ?Z87.898 - Personal history of other specified conditions (ICD-10) Osteoarthritis of knee (09/07/11) ?M17.10 - Unilateral primary osteoarthritis, unspecified knee (ICD-10) History of colonic polyps ?Z86.010 - Personal history of colonic polyps (ICD-10) Osteoarthritis of left patellofemoral joint ?M17.12 - Unilateral primary osteoarthritis, left knee (ICD-10) Vitamin D deficiency ?E55.9 - Vitamin D deficiency, unspecified (ICD-10) Vaginal pessary in situ ?Z96.0 - Presence of urogenital implants (ICD-10) Statin intolerance ?Z78.9 - Other specified health status (ICD-10) Stage 3 chronic kidney disease (2018) ?N18.30 - Chronic kidney disease, stage 3 unspecified (ICD-10) Osteopenia determined by x-ray ?M85.80 - Other specified disorders of bone density and structure, unspecified site (ICD-10) Gastroesophageal reflux ?K21.9 - Gastro-esophageal reflux disease without esophagitis (ICD-10) Fracture of left wrist ?S62.102A - Fracture of unspecified carpal bone, left wrist, initial encounter for closed fracture (ICD-10) Deep vein thrombosis (DVT) of lower extremity (2006) ?I82.409 - Acute embolism and thrombosis of unspecified deep veins of unspecified lower extremity (ICD-10) Counseling regarding advanced directives ?Z71.89 - Other specified counseling (ICD-10) Closed head injury ?S09.90XA - Unspecified injury of head, initial encounter (ICD-10) Balance problems ?R26.89 - Other abnormalities of gait and mobility (ICD-10) Anxiety (~1996) ?F41.9 - Anxiety disorder, unspecified (ICD-10) Surgical History History of dilation and curettage (2012) ?Z98.890 - Other specified postprocedural states (ICD-10) History of cataract extraction (2015) ?Z98.49 - Cataract extraction status, unspecified eye (ICD-10) Family History Sister Breast cancer, Onset Age: 75 Daughter Thyroid disease Son Diabetes Social History Narrative: , retired teacher exercises regularly- 3/week, water aerobics. She regularly does water aerobics at the [employer] [facility]. nonsmoker- quit 20 yrs ago, hx 30 pack years rarely consumes alcohol She has lived in [place] since 2002. She lives alone but has grandkids in town. She previously worked as a teacher ([employer]) in the [employer]. Her was also a teacher. He about 25 years ago. Her daughter and lives here with her 2 grandkids, ages 16 and 11. The older is a senior, and the younger in 7th grade. Smoking Status: Former smoker What tobacco products do you use: cigarettes Smoking quit date/years: >15 years ago Do you use any of these nicotine containing products: None Second hand tobacco smoke exposure: No How often do you have a drink containing alcohol: never AUDIT-C Alcohol total score: 0 Non-prescribed substance use: denies use service: No Exam Narrative: Exam Narrative: Vital signs reviewed In general, alert, nontoxic elderly woman. Breathing easily. Head: Normocephalic, atraumatic. Eyes: Sclera clear. Pupils equal and reactive. ENT: Mucous membranes moist. Neck: Supple without adenopathy. Heart: Regular rate and rhythm without murmur. Lungs: Clear. No increased work of breathing, crackles or wheezes. Abdomen: Soft, nontender to palpation. Extremities: Well perfused, pulses intact. No significant edema. On the left calf there is a curvilinear wound, I do not see any bite downs, bleeding is controlled, there is no surrounding erythema, edema, it is mildly tender right over that wound. No purulence. Neurologic: Alert, conversant. Speech fluent, face symmetric. Moves all extremities equally. Skin: Warm, dry well perfused. Affect: Normal. Const: Vital Signs, click to edit/add: Vital Signs - 24 hr 08/25/24 14:38 Temperature 96.9 F L Pulse Rate [Pulse Oximeter] 84 Respiratory Rate 16 Blood Pressure [Ri ght Upper Arm] 97/54 L Pulse Oximetry 96 Oxygen Delivery Me thod Room Air Course Course ED Course: Patient presents with a cat bite which is several days old, I do not see any evidence of significant infection. Today she has some weakness and fatigue and associated fall, possible near syncope Will just do a workup to look for signs of viral or bacterial infection such as COVID, influenza, UTI, make sure she is not anemic, significantly dehydrated, check an EKG. I am going to give her 500 mL of normal saline, they been working on packing her up for the past several days and she may just be a little dehydrated. No sepsis markers at this time. Her blood pressure is low normal, it sounds as if her blood pressures typically run on the higher side the review of her records shows that over the past year they have been well controlled, last was 118 systolic.. She is not tachycardic nor febrile. She had 500 mL of normal saline, is feeling improved at this time and is eager to go home. Labs are [place] [address], somewhat nonspecific a think in her case given that the wound does not look infected to me. Urine shows 5-10 red cells, 2-5 white cells, culture pending. Her viral swab is negative. Point of care troponin is negative. She does have a creatinine of 1.6 which is up from her baseline a couple of years ago of 1.1. Unclear whether this represents a little bit of acute kidney injury/dehydration or whether her baseline creatinine has changed. I have recommended that she follow up with primary care in the next week or so, have her wound looked at again and recheck labs. In the meantime, we did put a dressing on that today. Have prescribed Augmentin for wound prophylaxis. Return any time for acute worsening such as high fevers, chills, vomiting, worsening weakness etc.. Vital Signs Vital signs: Initial Vital Signs Temperature 96.9 F L 08/25/24 14:38 Temperature Source Temporal Artery Scan 08/25/24 14:38 Pulse Rate 84 08/25/24 14:38 Respiratory Rate 16 08/25/24 14:38 Blood Pressure 97/54 L 08/25/24 14:38 Blood Pressure Mean 68 L 08/25/24 14:38 Blood Pressure Position Sitting 08/25/24 14:38 Pulse Oximetry 96 08/25/24 14:38 Oxygen Delivery Method Room Air 08/25/24 14:38 Vital Signs Temperature 96.9 F L 08/25/24 14:38 Pulse Rate 84 08/25/24 14:38 Respiratory Rate 16 08/25/24 14:38 Blood Pressure 97/54 L 08/25/24 14:38 Pulse Oximetry 96 08/25/24 14:38 Oxygen Delivery Method Room Air 08/25/24 14:38 Temperature 96.9 F L 08/25/24 14:38 Pulse Rate 84 08/25/24 14:38 Respiratory Rate 16 08/25/24 14:38 Blood Pressure 97/54 L 08/25/24 14:38 Pulse Oximetry 96 08/25/24 14:38 Oxygen Delivery Method Room Air 08/25/24 14:38 Medications Administered Medications: Discontinued Medications Generic Name Dose Route Start Last Admin Trade Name Freq PRN Reason Stop Dose Admin Sodium Chloride 500 mls @ 500 mls/hr 08/25/24 14:33 08/25/24 16:47 0.9 % Sodium Chloride 500 Ml IV 08/25/24 15:32 Infused .Q1H ONE Infusion Medical Decision Making Lab Data Labs: Lab Results 08/25/24 08/25/24 08/25/24 Range/Units 14:32 14:33 14:34 WBC 17.90 H (4.50-11.00) K/uL RBC 4.66 (4.00-5.20) m/uL Hgb 13.3 (12.0-16.0) gm/dL Hct 41.2 (33.0-51.0) % MCV 88 (80-100) fL MCH 29 (26-34) pg MCHC 32 (32-36) gm/dL RDW Coeff of Jayson 14.3 (11.5-15.5) % Plt Count 339 (140-440) K/uL Neut % (Auto) 78.7 H (42.0-72.0) % Lymph % (Auto) 14.4 L (20-44) % [place] % (Auto) 6.3 (0.0-11.0) % Eos % (Auto) 0.2 (0.0-7.0) % Baso % (Auto) 0.2 (0.0-3.0) % Neut # (Auto) 14.10 H (1.7-7.0) K/uL Lymph # (Auto) 2.60 (0.90-2.90) K/uL [place] # (Auto) 1.10 H (0.00-0.90) K/UL Eos # (Auto) 0.00 (0.00-0.50) K/uL Baso # (Auto) 0.00 (0.00-0.30) K/uL Abs Immat Gran (auto) 0.00 (0.00-0.30) K/uL Imm/Tot Granulo (auto) 0.2 % Sodium 137 (135-149) mmol/L Potassium 4.1 (3.6-5.1) mmol/L Chloride 102 (96-114) mmol/L Carbon Dioxide 25 (20-32) mmol/L Anion Gap 10 (7-15) mEq/L BUN 21 (7-30) mg/dL Creatinine 1.6 H (0.5-1.5) mg/dL Estimated Creat Clear 23.13 Estimated GFR 31 ml/min Glucose 172 H (60-115) mg/dL Lactate 1.4 (0.5-1.9) mmol/L Calcium 9.3 (8.4-10.6) mg/dL Urine Color Yellow (Yellow) Urine Appearance Clear (Clear) Urine pH 5.5 (5.0-8.5) Ur Specific Beauty 1.015 (1.000-1.030) Urine Protein 1+ A (Negative) Urine Glucose (UA) Negative (Negative) Urine Ketones Trace A (Negative) Urine Blood 2+ A (Negative) Urine Nitrite Negative (Negative) Urine Bilirubin 1+ A (Negative) Urine Urobilinogen 1.0 (0.2-1.0) Ur Leukocyte Esterase 1+ A (Negative) Urine RBC 5-10 A (0-2) Urine WBC 2-5 (0-5) Ur Squamous Epith Cells None (None-Few) Urine Bacteria Few A (None) SARS-CoV-2 (PCR) Negative SARS-CoV-2 (Negative) Influenza Type A (PCR) Negative PCR FLU A (Negative) Influenza Type B (PCR) Negative PCR FLU B (Negative) RSV (PCR) Negative PCR RSV (Negative) POC Troponin I 0.01 (0.01-0.04) ng/ml Discharge Plan Discharge Clinical Impression: Cat bite involving extremity, Weakness Patient Disposition: Home, Self-Care Instructions: Animal Bite (ED), Weakness (ED) Additional Instructions: Take Augmentin as prescribed, this is for infection prevention due to your cat bit. Your labs suggest that you are a little dehydrated, make sure to keep working on hydration at home. You should be seen in the next week at your regular clinic to recheck wound and labs. Return any time if you are feeling significantly worse, have high fevers, shaking chills, vomiting, worsening weakness etcetera. Prescriptions: No Action calcium carbonate 500 mg calcium (1,250 mg) tablet 500 mg PO BID oxyquinoline-sod.lauryl sulfat 0.025-0.01 % gel 0.5 ea vaginal .Weekly cholecalciferol (vitamin D3) 50 mcg (2,000 unit) tablet 50 mcg PO DAILY Qty: 90 4RF citalopram 20 mg tablet 20 mg PO DAILY Qty: 90 4RF famotidine 20 mg tablet 20 mg PO BID Qty: 180 4RF pravastatin 20 mg tablet 20 mg PO .Bedtime Qty: 90 4RF estradiol 0.01 % (0.1 mg/gram) cream 0.5 g vaginal 2XW Qty: 42.5 3RF Rx Instructions: Use nightly for 2 weeks, then twice weekly Follow Up/Referrals: Zo Jackson DO [Primary Care Provider] - Stand Alone Forms: Snip[employer] Info Instructions
[2024-08-25] MEDS: 0.9 % SODIUM CHLORIDE 500 ML 500 ML IV (15:05)
[2024-08-25 15:11] LABS: Chloride* 102 mmol/L (96-114)
[2024-08-25 15:12] LABS: Potassium* 4.1 mmol/L (3.6-5.1); Sodium* 137 mmol/L (135-149)
[2024-08-25 15:13] LABS: Troponin, Point-of-Care* 0.01 ng/ml (0.01-0.04)
[2024-08-25 15:14] LABS: Creatinine* 1.6 mg/dL (0.5-1.5); Est. Creatinine Clearance* 23.13; Estimated Glomerular Filt Rate 31 ml/min
[2024-08-25 15:15] LABS: Anion Gap 10 mEq/L (7-15); Blood Urea Nitrogen* 21 mg/dL (7-30); Calcium* 9.3 mg/dL (8.4-10.6); Carbon Dioxide* 25 mmol/L (20-32); Glucose* 172 mg/dL (60-115)
[2024-08-25 15:39] LABS: PCR FLU A Negative PCR FLU A (Negative); PCR FLU B Negative PCR FLU B (Negative); PCR RSV Negative PCR RSV (Negative); SARS PCR* Negative SARS-CoV-2 (Negative)
[2024-08-25 16:00] VITALS: BP 109/59; PULSE 80; RESP 16; O2SAT 98
[2024-08-25 16:14] LABS: Appearance Urine Clear (Clear); Bilirubin Urine 1+ (Negative); Blood Urine 2+ (Negative); Color Urine Yellow (Yellow); Glucose Urine Negative (Negative); Ketones Urine Trace (Negative); Leukocyte Esterase Urine 1+ (Negative); Nitrite Urine Negative (Negative); Protein Urine 1+ (Negative); Specific Gravity Urine 1.015 (1.000-1.030); pH Urine 5.5 (5.0-8.5)
[2024-08-25 16:15] LABS: Bacteria Urine Few
== END 2024-08-25 17:32 | disposition home or self-care (01) ==
PROVIDERS: Emergency Provider Emergency Medicine; PCP Family Medicine
DX: S81.832A Puncture wound without foreign body, left lower leg, initial encounter (principal); W55.01XA Bitten by cat, initial encounter; R82.90 Unspecified abnormal findings in urine
CPT/HCPCS: 36415; 80048; 81001; 83605; 84484; 85025; 87086; 87631; 93005; 99283; 99284; J7030